=== PATIENT | female | born 1950 | race Caucasian/White ===

== ENCOUNTER → 2016-04-17 | Outpatient (CLI) | payer OTHER ==
[~2016-04-17] MED LIST: DIOV160T60 PO; LEVO.1 PO; PANT20 PO
[2016-04-17 11:37] LABS: ANION GAP 5 MEQ/L (5-15); BICARBONATE 29.7 MEQ/L (21.0-32.0); BLOOD UREA NITROGEN 15 MG/DL (7-18); CHLORIDE 105 MEQ/L (98-107); GLUCOSE,FASTING 108 MG/DL (74-99); POTASSIUM 4.1 MEQ/L (3.5-5.1); SODIUM (NA) 140 MEQ/L (136-145)
[2016-04-17 11:43] LABS: ALKALINE PHOSPHATASE 72 U/L (45-117); ALT (GPT) 26 U/L (10-53); AST (GOT) 15 U/L (15-37); GLOMERULAR FILTRATION RATE 56 ML/MIN (>89); LDL CHOLESTEROL 113 MG/DL (0-99); TOTAL BILIRUBIN ADULT 0.3 MG/DL (0.2-1.0)
[2016-04-17 16:32] LABS: HEMOGLOBIN A1a 1.2 %; HEMOGLOBIN A1b 0.9 %; HEMOGLOBIN Ao 84.7 %; HEMOGLOBIN F 0.9 %; HEMOGLOBIN P3 3.7 %
== END ==
LOC: PLAB 08:15
PROVIDERS: ATTEND Family Medicine
DX: I10 Essential (primary) hypertension (principal); E78.2 Mixed hyperlipidemia; E11.9 Type 2 diabetes mellitus without complications
CPT/HCPCS: 80053; 80061; 83036

== ENCOUNTER → 2016-07-06 | Outpatient (CLI) | payer OTHER | LOC: PLAB 15:11 | PROVIDERS: ATTEND Family Medicine | DX: E03.8 Other specified hypothyroidism (principal) | CPT/HCPCS: 84443 ==

== ENCOUNTER 2016-11-07 19:40 | Emergency (ER) | payer OTHER ==
[2016-11-07 19:51] VITALS: BP 165/71; PULSE 63; RESP 20; TEMP 99.1; O2SAT 98
[2016-11-07] MEDS ORDERED: LEVO.1 PO (20:15)
[2016-11-07] MEDS ORDERED: VALS1TAB65 PO (20:15)
--- NOTE | 2016-11-07 20:16 | PD ---
HPI Chief Complaint: Pain: Acute or Chronic Time Seen by Provider: 20:07 Travel History International Travel<30 days: No Contact w/Intl Traveler<30days: No Traveled to known affect area: No History of Present Illness HPI The patient is 66-year-old female that has been lifting repetitively for the past month caring for her mother and complains of the last 2 days of pain on the anterior right shoulder. It hurts particularly when she flexes her biceps. She denies any trauma, fever or erythema in the area. [facility] Past Medical History Diabetes: Yes Hypertension: Yes Thyroid Disease: Yes Dilation and Curettage (D&C): Yes Past Surgical History Abdominal Surgery: Yes (Cholycystomy) Gynecologic Surgery: Yes (vag hysterectomy,Dand C) Hysterectomy: Yes Other Surgery: Yes (URETERAL IMPLANT, NATHALY) Social History Alcohol Use: No Tobacco Use: No Substance Use: No Allergies-Medications (Allergen,Severity, Reaction): Coded Allergies: Contrast Media (Verified Allergy, Severe, hives, 11/07/16) Flagyl (Verified Allergy, Severe, hives, 11/07/16) Penicillin (Verified Allergy, Severe, hives, 11/07/16) Seafood (Verified Allergy, Severe, 11/07/16) Tobramycin (Verified Allergy, Severe, hives, 11/07/16) Vancomycin (Verified Allergy, Severe, hives, 11/07/16) Uncoded Allergies: red wine (Allergy, Severe, 05/07/15) Reported Meds & Prescriptions Reported Meds & Active Scripts Active Reported Synthroid (Levothyroxine Sodium) 100 Mcg Tab 100 Mcg PO DAILY Valsartan 160 Mg Tab 160 Mg PO DAILY Review of Systems Except as stated in HPI: all other systems reviewed are Neg Physical Exam Narrative GENERAL: The patient is alert, oriented 3 and slight apparent distress with her right shoulder discomfort. Her vital signs show blood pressure 165/71 but otherwise are normal. SKIN: Focused skin assessment warm/dry. HEAD: Atraumatic. Normocephalic. EYES: Pupils equal and round. No scleral icterus. No injection or drainage. ENT: No nasal bleeding or discharge. Mucous membranes pink and moist. NECK: Trachea midline. No JVD. CARDIOVASCULAR: Regular rate and rhythm. No murmur appreciated. RESPIRATORY: No accessory muscle use. Clear to auscultation. Breath sounds equal bilaterally. GASTROINTESTINAL: Abdomen soft, non-tender, nondistended. Hepatic and splenic margins not palpable. MUSCULOSKELETAL: No obvious deformities. No clubbing. No cyanosis. No edema. No erythema is seen over the shoulder. No deformity is noted over the shoulder. There is tenderness over the bursa and around the bicipital tendon. I can completely reproduce the pain by pressing in the area and having the patient flex her elbow. The patient has very little pain on abduction of her right arm at the shoulder. She has full range of motion on abduction. NEUROLOGICAL: Awake and alert. No obvious cranial nerve deficits. Motor grossly within normal limits. Normal speech. PSYCHIATRIC: Appropriate mood and affect; insight and judgment normal. Data Data Last Documented VS Vital Signs Date Time Temp Pulse Resp B/P Pulse Ox O2 Delivery O2 Flow Rate FiO2 11/07/16 19:51 99.1 63 20 165/71 98 Orders Shoulder, Complete (>2vws) (11/07/16 20:12) Splint Or Brace Apply/Monitor (11/07/16 20:18) Ketorolac Inj (Toradol Inj) (11/07/16 20:30) Electrocardiogram (11/07/16 19:59) MDM Medical Decision Making Medical Screen Exam Complete: Yes Emergency Medical Condition: Yes Medical Record Reviewed: Yes Interpretation(s) X-ray shows calcific tendinosis of the distal infraspinatus tendon and acromioclavicular joint arthrosis. The patient is not tender in these areas. The EKG shows no acute change. It shows a normal sinus rhythm with a ventricular rate of 58. Differential Diagnosis Bursitis, biceps tendinitis, fracture shoulderunlikely, arthritis shoulder unlikely, rotator cuff syndrome, calcific tendinitis Narrative Course The patient is tender around the biceps tendon. This is likely a bursitis and not a tendinitis. Plan: The patient be put on Motrin 600 mg 3 times daily, rest with sling and follow-up with her primary care physician next week. Diagnosis Primary Impression: Acute bursitis of right shoulder Additional Instructions: As we discussed, rest is critical to let this bursitis, down. Follow-up Dr. Farley next week. The Motrin is taken regularly, 1 tablet 3 times daily. Med/Other Pt SpecificInfo: Prescription(s) given Scripts Ibuprofen 600 Mg Lox025 Mg PO TID #33 TAB Ref 0 Prov:Devon Jones MD 11/07/16 Disposition: 01 DISCHARGE HOME Condition: Stable Devon Jones MD Nov 07, 2016 20:16
[2016-11-07] MEDS ORDERED: KETOROLAC TROMETHAMINE 60 MG/2 ML (IM) VIAL IM ONE (20:30)
--- NOTE | 2016-11-07 21:01 | RADRPT ---
EXAM DATE/TIME: 11/07/2016 20:25 [facility] COMPARISON: No previous studies available for comparison. INDICATIONS : Shoulder pain. MEDICAL HISTORY : None. SURGICAL HISTORY : None. ENCOUNTER: Initial ACUITY: 2 days PAIN SCORE: 5/10 LOCATION: Right anterior shoulder FINDINGS: 5 views of the right shoulder. Bone alignment within normal limits. No evidence of fracture. Glenohu meral joint within normal limits. Mild to moderate hypertrophic change of the acromioclavicular joint . Lateral downsloping of the acromion. Calcific density in the region of the distal infraspinatus ten don indicating possible calcific tendinosis. CONCLUSION: 1. Possible calcific tendinosis of the distal infraspinatus tendon. 2. Acromioclavicular joint arthrosis. Sameer Moreira MD on November 07, 2016 at 20:58 Board Certified Radiologist. This report was verified electronically.
[2016-11-07] MEDS ORDERED: IBUP-232 PO (21:12)
--- NOTE | 2016-11-08 12:25 | EKG ---
Date Performed: 11/07/2016 Time Performed: 19:59:13 PTAGE: 66 years EKG: SINUS BRADYCARDIA BORDERLINE ECG PREVIOUS TRACING 05/07/15 Compared to prior tracing no significant change DOCTOR: Alan Duong Interpretating Date/Time 11/08/2016 12:22:49
== END 2016-11-07 21:25 | disposition home or self-care (01) ==
LOC: PHED 19:40 → PHEFT 21:25
DX: M75.51 Bursitis of right shoulder (principal); I10 Essential (primary) hypertension
CPT/HCPCS: 73030; 93005; 96372; 99284; J1885

== ENCOUNTER → 2017-02-26 | Outpatient (CLI) | payer OTHER ==
[~2017-02-26] MED LIST changes: -DIOV160T60 PO; +IBUP-232 PO; -PANT20 PO; +VALS1TAB65 PO
--- NOTE | 2017-02-28 23:26 | EKG ---
Date Performed: 02/26/2017 Time Performed: 15:07:15 PTAGE: 66 years EKG: SINUS BRADYCARDIA BORDERLINE ECG PREVIOUS TRACING : 11/07/2016 19.59 Compared to prior tracing no significant change DOCTOR: Erik Vazquez Interpretating Date/Time 02/28/2017 23:24:49
== END ==
LOC: HCAV 14:50
PROVIDERS: ATTEND Optometrist Occupational Vision
DX: H25.11 Age-related nuclear cataract, right eye (principal); H35.341 Macular cyst, hole, or pseudohole, right eye; R00.1 Bradycardia, unspecified
CPT/HCPCS: 93005

== ENCOUNTER → 2017-03-11 | Day surgery (SDC) | payer OTHER ==
[~2017-03-11] VITALS: Ht 157.5 cm; Wt 84.0 kg
[~2017-03-11] MED LIST changes: +CHLORHEXIDINE GLUCONATE 2 % 1 PACK (2 CLOTHS) TOPICAL PRN; +LACTATED RINGER'S 1000 ML IV PRN; +LIDOCAINE HCL 1% PF 30 ML VIAL ONE; +LIDOCAINE HCL 2% JELLY 5 ML SYRINGE TOPICAL ONE; +METOPROLOL TARTRATE 25 MG TAB PO PRN; +PROPARACAINE HCL 0.5% OPHT SOLN 15 ML BTL RIGHT EYE ONE; +SODIUM CHLORID 0.9% 500 ML IV PRN; +TOBRAMYCIN/DEXAMETHASONE OPTH OINT 3.5 GM TUBE ONE
[2017-03-11] MEDS: FLURBIPROFEN 0.03% OPHT SOLN 2.5 ML BTL RIGHT EYE SCH ×4 (08:45→09:00)
[2017-03-11] MEDS: PHENYLEPHRINE HCL 10% OPTH SOLN 5 ML BTL RIGHT EYE SCH ×4 (08:45→09:00)
[2017-03-11] MEDS: CYCLOPENTOLATE HCL 1% OPHT SOLN 2 ML BTL RIGHT EYE SCH ×4 (08:45→09:00)
[2017-03-11] MEDS: TROPICAMIDE 1% OPHT SOLN 15 ML BTL RIGHT EYE SCH ×4 (08:45→09:00)
[2017-03-11 10:45] VITALS: TEMP 97.8
[2017-03-11 11:05] VITALS: BP 146/71; PULSE 63; RESP 14; O2SAT 98
--- NOTE | 2017-03-11 11:55 | MP ---
cc: ALEJANDRO ARGUETA M.D. [facility] #: [id number] DATE: 03/11/2017 PREOPERATIVE DIAGNOSIS: Visually significant cataract right eye. POSTOPERATIVE DIAGNOSIS: Visually significant cataract right eye. OPERATION: Phacoemulsification with posterior chamber lens implantation, right eye. SURGEON: Alejandro Argueta MD ANESTHESIA: Topical with MAC. COMPLICATIONS: None. PROCEDURE: After informed consent was obtained, the patient was brought into the operative suite and placed on appropriate monitors by the Anesthesia Service. The patient had been given dilating drops and topical lidocaine gel in the holding area. The patient's operative eye was then prepped and draped in the usual sterile fashion. A wire lid speculum was placed. Further 2% lidocaine was then dropped on the cornea prior to beginning the procedure. A paracentesis incision was made in the peripheral cornea with a 1 mm kathia keratome. The anterior chamber was filled with viscoelastic. The anterior chamber was then entered through a stepped, clear corneal incision using a sharp 3 mm kathia keratome. A circular tear capsulorrhexis was then made with a bent needle cystitome. Following hydrodissection of the lens nucleus with balance saline, phacoemulsification of the nucleus was performed using a modified chopping technique. The remaining cortex was removed with irrigation/aspiration. The prior two procedures were both performed using the handpieces of the [employer] phaco unit. The capsular bag was then filled with viscoelastic. The intraocular lens was then injected into the capsular bag and positioned. The type of intraocular lens and its power can be found elsewhere in this chart. The remaining viscoelastic was then removed from the anterior chamber with the IA handpiece. The anterior chamber was reformed with balanced saline. The wound was then closed securely with stromal hydration. It was found to be watertight to an intraocular pressure of at least 30 mmHg by palpation. A small amount of balanced salt solution was then removed through the paracentesis site and the intraocular pressure at the end of the case was approximately 20 by palpation. All drapes were then removed. TobraDex ointment was then placed in the eye, which was closed beneath a semi-pressure patch dressing. The patient tolerated this procedure well and left the operating room awake and alert. The patient is to follow-up in my office in the morning. MD JONY Jain/CELESTE /10:42 AM /11:41 AM
== END | disposition home or self-care (01) ==
LOC: PHSDC 07:53
PROVIDERS: ATTEND Optometrist Occupational Vision
DX: H25.11 Age-related nuclear cataract, right eye (principal)
CPT/HCPCS: 00142; 66984; J7040; V2632

== ENCOUNTER → 2017-04-28 | Day surgery (SDC) | payer OTHER ==
[~2017-04-28] MED LIST changes: +ATROPINE SULFATE 1% OPHT SOLN 5 ML BTL ONE; -CHLORHEXIDINE GLUCONATE 2 % 1 PACK (2 CLOTHS) TOPICAL PRN; +DEXAMETHASONE SOD PHOS 4 MG/ML VIAL ONE; +EPINEPHrine HCL (1:1000) 1 MG/ML VIAL ONE; +FLURBIPROFEN 0.03% OPHT SOLN 2.5 ML BTL ONE; +HYALURONIDASE/LIDOCAINE/BUPIVACAINE 5 ML SYR ONE; -LACTATED RINGER'S 1000 ML IV PRN; -LIDOCAINE HCL 1% PF 30 ML VIAL ONE; -LIDOCAINE HCL 2% JELLY 5 ML SYRINGE TOPICAL ONE; -METOPROLOL TARTRATE 25 MG TAB PO PRN; +NEOMYCIN/POLYMYXIN/DEXAMETHASONE OPTH OINT 3.5 GM TUBE ONE; +PHENYLEPHRINE HCL 2.5 % OPTH SOLN 15 ML BTL ONE; -PROPARACAINE HCL 0.5% OPHT SOLN 15 ML BTL RIGHT EYE ONE; +PROPOFOL 200 MG/20 ML AMP IV ONE; -SODIUM CHLORID 0.9% 500 ML IV PRN; +SODIUM CHLORIDE 0.9% INJ 10 ML ONE; +TETRACAINE 0.5% OPTH SOLN 15 ML BTL ONE; -TOBRAMYCIN/DEXAMETHASONE OPTH OINT 3.5 GM TUBE ONE; +TROPICAMIDE 1% OPHT SOLN 15 ML BTL ONE; +ceFAZolin INJ 1,000 MG VIAL ONE
--- NOTE | 2017-05-10 09:51 | TN ---
cc: EB OCAMPO MD DATE OF SURGERY 04/28/2017 DATE OF 1950 PREOPERATIVE DIAGNOSIS Macular hole right eye. POSTOPERATIVE DIAGNOSIS Macular hole right eye. PROCEDURE Pars plana vitrectomy, membrane peeling, gas-fluid exchange right eye. ANESTHESIA MAC. SURGEON MD Harriet COMPLICATIONS None. PROCEDURE After informed consent was obtained and the eye was anesthetized with peribulbar anesthesia, she was brought to the operating room and the right eye was prepared and draped in the usual sterile fashion. A wire lid speculum was placed in the patient's left eye. 23 gauge vitrectomy cannulas were then placed in the lower temporal, supratemporal and supranasal quadrants 3 millimeters posterior to the corneoscleral limbus. An infusion cannula was placed lower temporally. Core vitrectomy was then performed using the vitreous cutter. The vitrectomy was carried out as far as possible to the vitreous base. Posteriorly the internal limiting membrane was peeled off from around the macular hole using intraocular forceps. Careful indirect ophthalmoscopy with scleral depression was then performed and no peripheral retinal breaks were noted. A complete air fluid exchange was then performed. The air was then exchanged for 16% C3F8. The three vitrectomy cannulas were then removed. Subconjunctival injections of dexamethasone and Ancef were placed. An atropine drop, Maxitrol ointment and a patch and shield were then applied. The patient tolerated the procedure well. There were no complications. She will remain face down over the next four days. [facility]. Eb Ocampo MD TAB/SSB /8:38 AM /9:38 AM
== END | disposition home or self-care (01) ==
LOC: ESDC 11:31
PROVIDERS: ATTEND Ophthalmology Retina Specialist
DX: H35.341 Macular cyst, hole, or pseudohole, right eye (principal); H43.813 Vitreous degeneration, bilateral; H35.033 Hypertensive retinopathy, bilateral; H25.13 Age-related nuclear cataract, bilateral
CPT/HCPCS: 00145; 67042; J0171; J0690; J1100